=== PATIENT | female | born 1960 | race Caucasian/White ===

== ENCOUNTER → 2019-09-04 13:52 | Outpatient (BNVA) | payer SELFPAY | PROVIDERS: Family Provider Family Medicine; PCP Family Medicine; Visit Provider Family Medicine | DX: N99.89 Other postprocedural complications and disorders of genitourinary system (principal); N39.0 Urinary tract infection, site not specified; H35.3131 Nonexudative age-related macular degeneration, bilateral, early dry stage | CPT/HCPCS: 81003 ==

== ENCOUNTER → 2020-03-27 14:20 | Outpatient (BNVA) | payer SELFPAY | PROVIDERS: Family Provider Family Medicine; PCP Family Medicine; Visit Provider Emergency Medicine | DX: N39.0 Urinary tract infection, site not specified (principal) | CPT/HCPCS: 81000 ==

== ENCOUNTER → 2020-06-23 10:53 | Outpatient (BNVA) | payer SELFPAY | PROVIDERS: Family Provider Family Medicine; PCP Family Medicine; Visit Provider Nurse Practitioner Family | DX: N39.0 Urinary tract infection, site not specified (principal) | CPT/HCPCS: 81000; 87086 ==

== ENCOUNTER → 2021-06-25 10:32 | Outpatient (BNVA) | payer SELFPAY | PROVIDERS: Family Provider Family Medicine; PCP Family Medicine; Visit Provider Family Medicine | DX: M17.12 Unilateral primary osteoarthritis, left knee (principal) | CPT/HCPCS: 73562 ==

== ENCOUNTER → 2023-05-15 09:40 | Outpatient (BNVA) | payer SELFPAY | PROVIDERS: Family Provider Family Medicine; PCP Family Medicine; Visit Provider Family Medicine | DX: M25.562 Pain in left knee (principal); M54.16 Radiculopathy, lumbar region; M79.652 Pain in left thigh | CPT/HCPCS: 72100; 73552; 73562 ==

== ENCOUNTER → 2023-08-02 13:12 | Outpatient (BNVA) | payer SELFPAY | PROVIDERS: Family Provider Family Medicine; PCP Family Medicine; Referring Provider Family Medicine; Visit Provider Specialist | DX: M25.552 Pain in left hip (principal); M16.12 Unilateral primary osteoarthritis, left hip | CPT/HCPCS: 73502 ==

== ENCOUNTER → 2024-03-25 14:00 | Outpatient (BNVA) | payer MEDICARE, SELFPAY | PROVIDERS: Family Provider Family Medicine; PCP Family Medicine; Visit Provider Nurse Practitioner | DX: Z01.818 Encounter for other preprocedural examination (principal); M16.12 Unilateral primary osteoarthritis, left hip | CPT/HCPCS: 36415; 73502; 80053; 81003; 81015; 85025; 87077; 87086; 87186 ==

== ENCOUNTER → 2024-04-08 10:25 | Outpatient (BNVA) | payer MEDICARE, SELFPAY | PROVIDERS: Family Provider Family Medicine; PCP Family Medicine; Visit Provider Family Medicine | DX: N39.0 Urinary tract infection, site not specified (principal) | CPT/HCPCS: 81000 ==

== ENCOUNTER 2024-04-09 16:07 | Observation (INO) | payer MEDICARE, SELFPAY ==
[2024-04-09] VITALS (12 sets, daily range): BP systolic 101–128; BP diastolic 65–87; PULSE 58–83; RESP 12–18; TEMP 36.3–37.2; O2SAT 98–100; BMI 23.9
--- NOTE | 2024-04-09 11:42 | ECG_ITS ---
[facility] Test Date: 2024-04-09 Pat Name: Angelica Vera Department: Room: Gender: Female Bet Taker: : 1960 Requested By: Bhavna Doyle Order Number: [id number] Esperanza MD: Andrea Leblanc M.D. Measurements Intervals [place] Rate: 85 P: 74 MO: 146 QRS: 56 QRSD: 94 T: 48 QT: 372 QTc: 443 Interpretive Statements SINUS RHYTHM INDETERMINATE AXIS INCOMPLETE RIGHT BUNDLE BRANCH BLOCK [90+ ms QRS DURATION, TERMINAL R IN V1/V2, 40+ ms S IN I/aVL/V4/V5/V6] No previous ECG available for comparison Electronically Signed On 04-09-2024 16:56:24 CDT by Andrea Leblanc M.D. [email or web address]
--- NOTE | 2024-04-09 12:10 | ANES.PREANE2 ---
Pre-Anesthetic Assessment Height/Weight: Height 1.65 m Weight 65.317 kg Temp Pulse Resp BP Pulse Ox O2 Del Method 97.4 F L 83 16 126/87 99 Room Air 04/09/24 11:53 04/09/24 11:53 04/09/24 11:53 04/09/24 11:53 04/09/24 11:53 04/09/24 11:53 Operation Date: 04/09/24 13:20 Proposed Procedures p Total Hip Arthroplasty(Left) - Luciana Schafer MD Familial anesthetic complications: SEvere PONV Was Beta Nafisa taken within 24 hours: N/A Was Clonidine taken within 24 hours: N/A Last intake: Intake Last Liquid Date 04/08/24 Last Liquid Time 18:30 Last Solid Date 04/08/24 Last Solid Time 18:00 Social No alcohol and No tobacco Exam alert, oriented x 3, clear to auscultation bilaterally and regular rate & rhythm Airway Mallampati: Class I Dentition: full Anesthetic Plan ASA status: 1 Anesthesia: Regional (specify below) Other: spinal Risk of > 500 ml blood loss (7ml/kg in children): Yes, adequate IV access and fluids planned Medications/Allergies Home Medications Medication Instructions Recorded Confirmed Last Taken Type fluoxetine 20 mg capsule 20 mg PO DAILY 90 days #90 caps 05/15/23 04/08/24 04/08/24 Rx rizatriptan 10 mg disintegrating 10 mg PO Q2H PRN migraine headache 05/15/23 04/08/24 Unknown 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) #10 tabs meloxicam 15 mg tablet 15 mg PO DAILY PRN hip pain 90 08/28/23 04/08/24 04/08/24 Rx days #90 tabs Allergies Allergy/AdvReac Type Severity Reaction Status Date / Time Penicillins Allergy Mild ALGY-Bliste Verified 04/08/24 09:57 r [facility] Anesthesia Medical History 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
[2024-04-09] MEDS: scopolamine 1.5 Patch 1 PATCH TRANSDERMA (12:11)
[2024-04-09] MEDS: CELEcoxib 200 mg Capsule 400 MG PO (12:13)
[2024-04-09] MEDS: gabapentin 300 mg Capsule PO (12:13)
[2024-04-09] MEDS: sodium chloride 0.9% 1,000 ML 30 ML IV (12:32)
[2024-04-09] MEDS: acetaminophen 1,000 MG/100 ML PIGGYBACK 400 MG IV ×2 (12:36→21:08)
--- NOTE | 2024-04-09 13:14 | P.HPUD_ITS ---
Surgery/Procedure H&P Update DATE OF PROCEDURE: April 09, 2024 DATE H&P PERFORMED: 03/25/21 H&P UPDATE INFORMATION: I have reviewed H&P completed within last 30 days, I have examined patient prior to procedure, No changes to prior documentation and H&P is in [facility] on date indicated PLANNED PROCEDURE: Operation Date: 04/09/24 13:20 Proposed Procedures p Total Hip Arthroplasty(Left) - Luciana Schafer MD Related Problem List Diagnoses (1) Primary osteoarthritis of left hip:
[2024-04-09] MEDS: ceFAZolin 2,000 mg SDV 2000 MG IVP ×2 (13:17→21:05)
[2024-04-09] MEDS: tranexamic acid 1,000 mg/10mL SDV 1000 MG IV (13:40)
[2024-04-09] MEDS: vancomycin 1,000 MG SDV 2000 MG XX (14:10)
--- NOTE | 2024-04-09 15:55 | P.OP_ITS ---
Operative Report Date of procedure: April 09, 2024 Pre-op diagnosis: Primary osteoarthritis left hip Post-op diagnosis: Primary osteoarthritis left hip Post-op findings: Severe degenerative osteoarthritis of the left hip Procedure done: Left total hip arthroplasty Implants: The [place] hip system utilizing the Insignia hip stem high offset size 6, with a size 52 mm by E alpha code Trident TriTanium solid back acetabular shell, a 42 mm E MDM cementless liner, and a Biolox delta ceramic V40 femoral head size 28 mm outer diameter with +0 mm neck length Specimens removed/disposition: Femoral head, disposed of Pathology: Synovium Surgeon: Luciana Schafer MD Multi Craft Maintenance Technician: Divina Hernandez Multi Craft Maintenance Technician: Whose services were required for positioning, retraction, closure, and overall completion of the surgical procedure Anesthesia: Spinal (With MAC, ASA 1) Estimated blood loss (mL): 50 IV fluids (mL): 1,000 Urine output (mL): 300 Complications: None Findings: Severe degenerative osteoarthritis of the left hip with complete denudement of cartilage. The hip was stable to flexion of 90 degrees with 60 degrees of internal rotation and 30 degrees of adduction, it was also stable to toe hang and external rotation. Leg lengths appeared equal. Condition: stable Disposition: PACU (Then admit under observation status to floor for postoperative rehabilitation and pain management) Brief History: This 64-year-old woman presents for left total hip arthroplasty. The patient had hip pain over the past year, but it was worsening in severity. She was limping, and she complained of significant difficulties with her activities of daily living. Extended discussion was had in the office with the patient to discuss left total hip arthroplasty. She wished to proceed and her was in agreement with the plan. Therefore, the patient was scheduled for the above procedure. Procedure: Patient was brought to the operating theater. She was transferred to the operating room table and subsequently administered a spinal anesthetic with MAC, ASA 1. Following administration of adequate anesthesia, the patient was placed in full lateral position and held in position with a pegboard. The patient's left lower extremity was then prepped and draped in usual fashion utilizing DuraPrep. It was draped free. Following prepping and draping a surgical pause was performed. At the time of surgical pause, we identified the site and side of surgery. We also identified the patient and preoperative surgical markings. Confirmation was made of equipment availability. Additionally, the patient's preoperative IV antibiotic, Ancef 2 g, was confirmed as being given in a timely fashion and being the appropriate antibiotic. Following the surgical pause, an incision was made centering over the patient's greater trochanter continuing proximally and distally as necessary to allow access to the hip joint. Dissection continued through skin and soft tissues using a scalpel, and hemostasis was obtained using electrocautery. The tensor fascia cristofer was identified and incised longitudinally. Sciatic nerve was identified and protected throughout the surgical procedure. A Charnley U retractor was placed after the tensor fascia cristofer had been incised longitudinally, and the sciatic nerve had been identified. The hip was inte rnally rotated, and the piriformis muscle was identified and tagged. Piriformis muscle along with the remaining short external rotators were then incised from the posterior aspect of the hip joint. These were retracted posteriorly. The capsule was entered in a T-type fashion with the edges being tagged, and subsequently the hip was dislocated. Following hip dislocation, a femoral neck osteotomy was accomplished in the appropriate position. We then evaluated the acetabulum. The femur was retracted anteriorly. Soft tissues were retracted and the labrum was removed. We then began reaming. Once the femoral head was removed, there was no evidence of infection, but there was significant loss of cartilage over the head and over the acetabulum with femoral head collapse. We reamed the gonzalez tabulum to a size 51 to allow for a size 52 mm TriTanium solid back acetabular shell component. The acetabulum was impacted into position. The shell was impacted into position. Subsequently, the MDM liner, cementless was impacted into place. This was a size 42 mm with the alpha code to match the size 52 TriTanium shell. Once this was impacted into position, edges were checked to ensure there was no soft tissue impingement. The area was irrigated and attention was directed to the proximal femur. The proximal femur was lifted out of the wound. A canal finder was passed after the box chisel. The reamer was used to lateralize. We then began broaching. We broached sequentially and had excellent fit and fill with the size 6 high offset Insignia hip stem. A trial reduction was accomplished with a +0 mm femoral head inside a trial MDM insert size 28 mm inner diameter by 42E. Leg lengths were evaluated and felt to be restored. The patient was stable to external rotation, toe hang, and at 90 degrees of flexion with 60 degrees of internal rotation and 30 degrees of adduction. The stability was felt to be excellent. Therefore, trial components were removed after the hip was dislocated. The size 6 high offset Insignia hip stem, Al[place], was impacted into position. Once this was in place, the MDM liner size 42 mm by E alpha code was assembled with the 28 mm +0 mm Biolox femoral head. This was then placed onto the hip stem and impacted into position. Hip was reduced. Again the hip was placed through range of motion, and the above stabilities were obtained. The wound was copiously irrigated with 20 mL of Betadine and 500 mL of normal saline mixed together. Subsequently, we suctioned this out and irrigated the wound copiously with lactated Ringer's. Being satisfied with the prosthesis, attention was directed to closure. Closure was accomplished with 0 Vicryl in the capsular tissues. Piriformis was reattached with 0 Vicryl as well. Tensor fascia cristofer was closed with 0 Vicryl in an interrupted fashion. The subcutaneous tissues were closed with a combination of 0 Vicryl and 2-0 STRATAFIX in a running fashion. Vancomycin powder and a Gelfoam thrombin mixture was placed into the wound as well. The skin was closed with a running 3-0 STRATAFIX followed by Dermabond Joycelyn and Flakito. The patient was placed in an abduction pillow. She was returned the Recovery Room in a satisfactory condition and will be discharged to the floor for postoperative rehabilitation and pain management. There were no complications. Related Problem List Diagnoses (1) Primary osteoarthritis of left hip:
--- NOTE | 2024-04-09 15:56 | XRR_ITS ---
PROCEDURE INFORMATION: Exam: XR Pelvis Exam date and time: 04/09/2024 4:02 PM Age: 64 years old Clinical indication: Device placement; Other: Post lt thr; Prior surgery; Surgery date: Post-operative (0-2 days); Surgery type: Post op lt hip; Additional info: S/P leonard, low ap pelvis TECHNIQUE: Imaging protocol: Radiologic exam of the pelvis. Views: 1 or 2 view. COMPARISON: CR XR hip LT 2-3V wo/w pel* [id number] 03/25/2024 2:09 PM FINDINGS: Bones/joints: A left hip prosthesis is well seated and well aligned. Intra-articular air is noted. Soft tissues: Unremarkable. XR/XR pelvis 1-2V* [id number] IMPRESSION: Intact postoperative hip prosthesis
--- NOTE | 2024-04-09 16:15 | SUR.PHASEI ---
1600 SCD pump to SCDs and pump on and working.
--- NOTE | 2024-04-09 16:25 | ANE.PACU2 ---
Inpatient post-anesthesia follow up: Airway intact: Yes Vital signs: Temperature 98.0 F Pulse Rate 62 Respiratory Rate 16 Blood Pressure 95/64 Pulse Oximetry 97 Oxygen Delivery Me thod Room Air Oxygen Flow Rate Fraction of Inspir ed Oxygen Hydration adequate: Yes Nausea and vomiting: No Pain level: 1 Mental status: Baseline
[2024-04-09] MEDS: oxyCODONE 5 mg IR Tab/Cap PO (21:06)
[2024-04-09] MEDS: CELEcoxib 200 mg Capsule PO (21:06)
[2024-04-09] MEDS: tranexamic acid 1,000 MG/100 ML PREMIX 600 MG IV (21:08)
[2024-04-09] MEDS: chlorhexidine gluconate 0.12% Btl 473 mL 30 ML MUCOUS MEM (21:08)
[2024-04-09] MEDS: ondansetron 2 mg/ML SDV 2 mL 4 MG IVP (21:48)
[2024-04-10] VITALS: BP 113/65; PULSE 68; RESP 15; TEMP 36.9; O2SAT 97
--- NOTE | 2024-04-10 01:05 | PC.NURSE ---
pt requested that we don't give her oxycodone for pain management anymore due to the drowsiness and nausea she experienced. pt was given zofran shortly after oxy admin and pt stated she might change her mind if she really hurts but would like to avoid it.
[2024-04-10 04:00] VITALS: BP 101/59; PULSE 95; RESP 19; TEMP 36.6; O2SAT 96
[2024-04-10] MEDS: acetaminophen 1,000 MG/100 ML PIGGYBACK 400 MG IV ×2 (04:43→12:44)
[2024-04-10] MEDS: ceFAZolin 2,000 mg SDV 2000 MG IVP ×2 (04:43→12:26)
[2024-04-10 05:51] LABS: Basophils % 0.3 %; Eosinophils % 0.1 %; Hematocrit 35.3 % (36-47); Lymphocytes # 1.3 10^3/uL (0.8-4.8); Lymphocytes % 12.5 %; Mean Corpuscular HGB Conc 32.6 g/dL (30-55); Mean Corpuscular Hemoglobin 30.8 pg (27-33); Mean Corpuscular Volume 94.6 fl (85-98); Mean Platelet Volume 9.3 fL (7.4-10.4); Monocytes # 0.8 10^3/uL (0.2-0.9); Neutrophils # 8.19 10^3/uL (1.8-7.7); Neutrophils % 78.8 %; Nucleated Red Blood Cells % 0 %; Platelet Count 237 10^3/cmm (157-399); Red Blood Count 3.73 10^6/uL (3.85-5.65); Red Cell Distribution Width 13.7 % (12.1-15.1); White Blood Count 10.39 10^3/uL (3.29-11.43)
[2024-04-10 06:19] LABS: Anion Gap 14.9 (5-19); Blood Urea Nitrogen 12 mg/dL (8-23); Calcium 8.6 mg/dL (8.5-10.5); Carbon Dioxide 20 mmol/L (22-29); Chloride 103 mmol/L (98-107); Creatinine Clr Calc Pharmacy 68.0934; Glomerular Filtration Rate 100.3 mL/min (90-130); Glucose 100 mg/dL (65-115); Osmolality Calculated 278 mOsm/kg (285-295); Potassium 3.9 mmol/L (3.5-5.1); Sodium 134 mmol/L (136-145)
[2024-04-10 08:15] VITALS: BP 92/54; PULSE 66; RESP 16; O2SAT 94
--- NOTE | 2024-04-10 08:31 | PC.NURSE ---
This nurse was at the nurses station when over heard PT Derrick biggs for a nurse. This nurse ran to pt room and PT stated the pt was very near a syncopal episode. The PT assisted pt back to room by chair while a vital cart was obtained. As the pt was standing with him to pivot back to the bed from a chair, the pt visibly became limp in her limbs and her head fell back. Pt laid in bed and legs elevated. BP at this time was 92/54. Pt placed in trendelenburg.
[2024-04-10 08:40] VITALS: BP 95/64; PULSE 62; RESP 16; TEMP 36.7; O2SAT 97
--- NOTE | 2024-04-10 11:26 | PC.NURSE ---
When this nurse went to bedside to give AM medications, the pt refused stating she has them at home and if she is being discharged she would rather not buy them here. All meds returned to [facility]
[2024-04-10 12:00] VITALS: BP 107/68; PULSE 67; RESP 16; TEMP 36.8; O2SAT 98
[2024-04-10] MEDS: ondansetron 2 mg/ML SDV 2 mL 4 MG IVP (12:42)
--- NOTE | 2024-04-10 13:39 | P.DS_ITS ---
Discharge Providers Date of Admission: 04/09/24 16:07 Date of Discharge: April 10, 2024 Attending Provider at Admission: Luciana Schafer MD Attending Provider at Discharge: Luciana Schafer MD Primary Care Provider: Leela Napier MD Diagnoses at Discharge Discharge Diagnosis (1) Primary osteoarthritis of left hip: Status: Acute (2) Status post total hip replacement, left: Status: Acute Permanent problem details: Date of procedure: April 09, 2024 Diagnosis: Primary osteoarthritis left hip Procedure done: Left total hip arthroplasty Implants: The [place] hip system utilizing the Insignia hip stem high offset size 6, with a size 52 mm by E alpha code Trident TriTanium solid back acetabular shell, a 42 mm E MDM cementless liner, and a Biolox delta ceramic V40 femoral head size 28 mm outer diameter with +0 mm neck length Reason for Visit Reason for Visit: M16.12 Brief History: This 64-year-old woman presents for left total hip arthroplasty. The patient h ad hip pain over the past year, but it was worsening in severity. She was limping, and she complained of significant difficulties with her activities of daily living. Extended discussion was had in the office with the patient to discuss left total hip arthroplasty. She wished to proceed and her was in agreement with the plan. Therefore, the patient was scheduled for the above procedure. Hospital Course Hospital Course This 64-year-old woman was admitted under observation status to the floor following same-day surgery for left total hip arthroplasty. The procedure was well-tolerated. The patient did well postoperatively. Her leg was without significant swelling. There was little to no ecchymosis. She was comfortable ambulating. Questions were answered prior to her discharge. She was neurologically intact, and there was no evidence of DVT. Physical Exam Const: COMMON NORMALS: no acute distress, average body habitus, patient oriented x3 and alert GENERAL APPEARANCE: cooperative and comfortable ORIENTATION/CONSCIOUSNESS: Yes awake HENMT: COMMON NORMALS: normocephalic and atraumatic HEAD & SCALP: normocephalic and atraumatic Eye: GENERAL EYE: appearance normal, both eyes and all related structures Chest: COMMONS NORMALS: normal inspection of the chest Resp: COMMON NORMALS: normal respiratory effort EFFORT & INSPECTION: Yes able to speak in complete sentences and Yes symmetric chest movement Extremity: LEFT LOWER EXTREMITY: Yes hip joint (Little to no ecchymosis) Left hip: Yes inspection (Little to no swelling), Yes palpation ( nontender), Yes ROM (Not evaluated) and Yes neurovascular exam (No evidence of DVT) Neuro: COMMON NORMALS: patient oriented x3 SENSORIUM/ORIENTATION: Yes alert Psych: COMMON NORMALS: mental status grossly normal APPEARANCE: Yes grossly normal ATTITUDE: Yes calm and Yes engaged ATTENTION/CONCENTRATION: Yes attention grossly intact Skin: COMMON NORMALS: no rashes or lesions noted GENERAL SKIN EXAM: no rashes or lesions noted Urinary Catheter Management: Mullins: Cath Placed During This Visit: yes, but has since been removed by the nurse Reason for Continuing Indwelling Catheter: Decision to DC Catheter Urinary Catheter Date of Insertion: 04/09/24 Urinary Catheter Time of Insertion: 13:40 Date Urinary Catheter Removed: 04/10/24 Time Urinary Catheter Discontinued: 04:57 Discharge Data Studies Completed and Pending Completed Studies During Hospitalization Category Date Time Status XR pelvis 1-2V* [id number] Routine Exams 04/09/24 15:56 Completed Pending at discharge Category Date Time Status Complete Blood Count w/Auto AM LABS Lab 04/11/24 04:00 Ordered Complete Blood Count w/Auto AM LABS Lab 04/12/24 04:00 Ordered Pathology: Surgical [PTH] Routine Pth 04/09/24 15:59 Received Radiology Impressions Pelvis X-Ray 04/09/24 15:56 IMPRESSION: Intact postoperative hip prosthesis Laboratory Results WBC 10.39 10^3/uL (3.29-11.43) 04/10/24 05:19 RBC 3.73 10^6/uL (3.85-5.65) L 04/10/24 05:19 Hgb 11.50 g/dL (11.27-16.99) 04/10/24 05:19 Hct 35.3 % (36-47) L 04/10/24 05:19 MCV 94.6 fl (85-98) 04/10/24 05:19 MCH 30.8 pg (27-33) 04/10/24 05:19 MCHC 32.6 g/dL (30-55) 04/10/24 05:19 RDW 13.7 % (12.1-15.1) 04/10/24 05:19 Plt Count 237 10^3/cmm (157-399) 04/10/24 05:19 MPV 9.3 fL (7.4-10.4) 04/10/24 05:19 Neut % (Auto) 78.8 % 04/10/24 05:19 Lymph % (Auto) 12.5 % 04/10/24 05:19 Lyman % (Auto) 8.0 % 04/10/24 05:19 Eos % (Auto) 0.1 % 04/10/24 05:19 Baso % (Auto) 0.3 % 04/10/24 05:19 Neut # (Auto) 8.19 10^3/uL (1.8-7.7) H 04/10/24 05:19 Lymph # (Auto) 1.3 10^3/uL (0.8-4.8) 04/10/24 05:19 Lyman # (Auto) 0.8 10^3/uL (0.2-0.9) 04/10/24 05:19 Eos # (Auto) 0.0 10^3/uL (0.0-0.8) 04/10/24 05:19 Baso # (Auto) 0.0 10^3/uL (0.0-0.1) 04/10/24 05:19 Nucleated RBC % (auto) 0 % 04/10/24 05:19 Nucleated RBCs # 0.0 /100WBC 04/10/24 05:19 Sodium 134 mmol/L (136-145) L 04/10/24 05:19 Potassium 3.9 mmol/L (3.5-5.1) 04/10/24 05:19 Chloride 103 mmol/L (98-107) 04/10/24 05:19 Carbon Dioxide 20 mmol/L (22-29) L 04/10/24 05:19 Anion Gap 14.9 (5-19) 04/10/24 05:19 BUN 12 mg/dL (8-23) 04/10/24 05:19 Creatinine 0.6 mg/dL (0.5-0.9) 04/10/24 05:19 GFR Calculation 100.3 mL/min (90-130) 04/10/24 05:19 Glucose 100 mg/dL (65-115) 04/10/24 05:19 Calculated Osmolality 278 mOsm/kg (285-295) L 04/10/24 05:19 Calcium 8.6 mg/dL (8.5-10.5) 04/10/24 05:19 Vitals Last Vital Signs Temp 98.3 F 04/10/24 12:00 Pulse 67 04/10/24 12:00 Resp 16 04/10/24 12:00 BP 107/68 04/10/24 12:00 Pulse Ox 98 04/10/24 12:00 O2 Del Method Room Air 04/10/24 08:40 Discharge Plan Discharge Patient Disposition: Home Health Service Condition: Stable Prescriptions: New celecoxib 200 mg Capsule 200 mg PO 1XD 30 Days Qty: 30 0RF acetaminophen 500 mg Tablet 1,000 mg PO Q8H 15 Days Qty: 90 0RF aspirin 325 mg Tablet,Delayed Release (Dr/Ec) 325 mg PO DAILY 30 Days Qty: 30 0RF oxycodone 5 mg Tablet 5 - 10 mg PO Q4H PRN (Reason: Moderate To Severe Pain) 7 Days Qty: 40 0RF Continued meloxicam 15 mg tablet 15 mg PO DAILY PRN (Reason: hip pain) 90 Days Qty: 90 3RF Rx Instructions: WITH FOOD fluoxetine 20 mg capsule 20 mg PO DAILY 90 Days Qty: 90 3RF Rx Instructions: 340B rizatriptan [Maxalt-CHARGING CAR OPERATOR] 10 mg tablet,disintegrating 10 mg PO Q2H MDD 2 tabs PRN (Reason: migraine headache) Qty: 10 11RF Rx Instructions: may repeat once 2 hours after first dose Discharge Orders: Discharge Order (Routine); Ordered 04/10/24 Ordered By: Luciana Schafer Other Ambulatory Orders: DME: Walker (Order) Location: None Selected Ordered By: Luciana Schafer Referrals: Luciana Schafer MD [Physician] - 04/22/24 1:00 pm Leela Napier MD [Primary Care Provider] - 04/16/24 10:45 am () Discharge Diet: Advance as tolerated and Usual diet Discharge Activity: Increase activity as tolerated, Limit activity as instructed, Use walker/crutches as instructed and As per PT/OT instructions Patient Instructions: Aspirin (By mouth), Oxycodone, Rapid Release (By mouth), Celecoxib (By mouth), Acute Wound Care (DC), Total Hip Replacement (GEN), Joint Replacement Stoplight, Opioid Safety, Post Anesthesia Care Activity Restrictions/Additional Instructions: Ice to left hip. You may weight-bear as tolerated. Posterior hip precautions as instructed. You may shower, but do not submerge your hip in water. Keep clear dressing in place until it comes up on its own. If it lifts and begins to leak into the dressing area, please remove it. Discharge Attestations Time Spent in Discharge Care*: greater than 30 min Specific Discharge Activities: educating patient, educating and/or supporting family/caregiver, documenting/other paperwork and evaluating patient/reviewing data Quality Metrics Clinical Quality Measures [ No reported AMI, CVA or VTE this stay] Coding Level of Care Code Acute Code for Chg Fwd Diagnoses Primary osteoarthritis of left hip M16.12 Status post total hip replacement, left Z96.642
[2024-04-10 15:29] VITALS: BP 107/68; PULSE 67; RESP 16; TEMP 36.8; O2SAT 98
== END 2024-04-10 15:15 | disposition home health service (06) ==
LOC: MEDSURG 16:08
PROVIDERS: Nurse Practitioner; Admitting Provider Specialist; Family Provider Family Medicine; PCP Family Medicine; Visit Provider Specialist
PROC: (CPT 27130; principal; 2024-04-09 13:20)
DX: M16.12 Unilateral primary osteoarthritis, left hip (principal); Z79.899 Other long term (current) drug therapy; Z88.0 Allergy status to penicillin
CPT/HCPCS: 27130; 36415; 51702; 72170; 80048; 85025; 88305; 93005; 97110; 97116; 97162; 97167; 97530; C1713; C1776; G0378; J0131; J0690; J1100; J2250; J2405; J2704; J3370; J7030

== ENCOUNTER → 2024-04-22 13:16 | Outpatient (BNVA) | payer MEDICARE, SELFPAY | PROVIDERS: Family Provider Family Medicine; PCP Family Medicine; Visit Provider Specialist | DX: Z96.642 Presence of left artificial hip joint (principal) | CPT/HCPCS: 73502; 99024 ==

== ENCOUNTER → 2024-05-22 08:23 | Outpatient (BNVA) | payer MEDICARE, SELFPAY | PROVIDERS: Family Provider Family Medicine; PCP Family Medicine; Visit Provider Specialist | DX: Z96.642 Presence of left artificial hip joint (principal) | CPT/HCPCS: 73502; 99024 ==

== ENCOUNTER → 2024-08-26 12:47 | Outpatient (BNVA) | payer MEDICARE, SELFPAY | PROVIDERS: Family Provider Family Medicine; PCP Family Medicine; Visit Provider Specialist | DX: Z96.642 Presence of left artificial hip joint (principal); M16.12 Unilateral primary osteoarthritis, left hip | CPT/HCPCS: 73502; 99213 ==

== ENCOUNTER → 2025-03-27 08:25 | Outpatient (BNVA) | payer MEDICARE, SELFPAY | PROVIDERS: Family Provider Family Medicine; PCP Family Medicine; Visit Provider Family Medicine | DX: Z13.1 Encounter for screening for diabetes mellitus (principal); Z13.220 Encounter for screening for lipoid disorders; Z13.6 Encounter for screening for cardiovascular disorders; M10.9 Gout, unspecified; N39.0 Urinary tract infection, site not specified; R30.0 Dysuria | CPT/HCPCS: 80053; 80061; 81000; 84550; 87086 ==

== ENCOUNTER 2025-04-02 13:21 | Outpatient (CLI) | payer MEDICARE, SELFPAY ==
--- NOTE | 2025-04-02 14:00 | MM_ITS ---
WS: [id number] BILATERAL 3D TOMOSYNTHESIS DIGITAL SCREENING MAMMOGRAPHY WITH CAD CLINICAL INFORMATION: Z12.39 - Encounter for other screening for malignant neop... HISTORY: Screening mammogram. No current complaints. COMPARISON: New baseline TECHNIQUE: Bilateral CC and MLO views. FINDINGS: The breasts are composed of heterogeneous fibroglandular density tissue, which can limit the detection of small underlying mass lesions. No suspicious mass, asymmetry, calcifications, or architectural distortion. No evidence of malignancy. MM/MM [facility] tomosynthesis [id number] IMPRESSION: DENSITY: The breasts are heterogeneously dense, which may obscure small masses. BI-RADS: 1 - Negative FOLLOW UP: 1 Year Follow-up Recommend return to annual screening mammography.
--- NOTE | 2025-04-02 14:30 | XR_ITS ---
WS: [id number] DEXA (DUAL ENERGY X-RAY ABSORPTIOMETRY) Bone mineral density was performed using a [facility] machine. HISTORY: Z78.0 - Asymptomatic menopausal state COMPARISON: None available. Lumbar spine BMD (L1-L4): 0.777 g/cm2 T score: -3.4 Z score: -1.8 Total hip BMD: Right: 0.623. T score: -3.1 Z score: -1.8 Left forearm BMD: 0.519 g/cm2. T score: -4.1 Z score: -2.6 10 year probability of a major osteoporotic fracture is 27.6%. XR/XR DEXA axial skeleton* [id number] IMPRESSION: OSTEOPOROSIS based upon the WHO classification for females.
== END 2025-04-02 13:22 | disposition home or self-care (01) ==
LOC: RAD 13:23
PROVIDERS: Family Provider Family Medicine; PCP Family Medicine; Visit Provider Family Medicine
DX: Z12.31 Encounter for screening mammogram for malignant neoplasm of breast (principal); Z13.820 Encounter for screening for osteoporosis; Z78.0 Asymptomatic menopausal state; R92.323 Mammographic fibroglandular density, bilateral breasts; R92.333 Mammographic heterogeneous density, bilateral breasts; M81.0 Age-related osteoporosis without current pathological fracture
CPT/HCPCS: 77063; 77067; 77080

== ENCOUNTER → 2025-04-09 12:49 | Outpatient (BNVA) | payer MEDICARE, SELFPAY | PROVIDERS: Family Provider Family Medicine; PCP Family Medicine; Visit Provider Specialist | DX: Z47.89 Encounter for other orthopedic aftercare (principal); Z96.642 Presence of left artificial hip joint | CPT/HCPCS: 73502; 99213 ==

== ENCOUNTER → 2025-04-17 07:38 | Outpatient (BNVA) | payer MEDICARE, SELFPAY | PROVIDERS: Family Provider Family Medicine; PCP Family Medicine; Visit Provider Student in an Organized Health Care Education/Training Program | DX: Z12.11 Encounter for screening for malignant neoplasm of colon (principal) | CPT/HCPCS: 99024; 99204 ==

== ENCOUNTER 2025-04-24 09:58 | Day surgery (SDC) | payer MEDICARE, SELFPAY ==
[2025-04-24 10:10] VITALS: BP 98/75; PULSE 110; RESP 18; TEMP 36.4; O2SAT 96; BMI 23.6
--- NOTE | 2025-04-24 10:30 | ANES.PREANE2 ---
Pre-Anesthetic Assessment Height/Weight: Height 1.65 m Weight 64.41 kg Temp Pulse Resp BP Pulse Ox O2 Del Method 97.5 F L 110 H 18 98/75 96 Room Air 04/24/25 10:10 04/24/25 10:10 04/24/25 10:10 04/24/25 10:10 04/24/25 10:10 04/24/25 10:10 Operation Date: 04/24/25 11:30 Proposed Procedures p Colonoscopy [id number] R19.5(Not Applicable) - Holden Hearn MD Familial anesthetic complications: PONV Was Beta Nafisa taken within 24 hours: N/A Was Clonidine taken within 24 hours: N/A Last intake: Intake Last Liquid Date 04/23/25 Last Liquid Time 22:00 Last Solid Date 04/22/25 Last Solid Time 16:00 Social No alcohol and No tobacco Exam alert and oriented x 3 Airway Submandibular: within normal limits Cervical ROM: within normal limits Mallampati: Class IV (small mouth opening) Dentition: full History/ROS No significant complaints Pulmonary None reported CV/HEM None reported None reported Hepatic None reported GI None reported Metabolic None reported Musc/skel None reported Neuropsych Depression Anesthetic Plan ASA status: 2 Anesthesia: Anesthesia Evaluation and MAC Medications/Allergies Home Medications ?Medication ?Instructions ?Recorded ?Confirmed ?Last Taken ?Type fluoxetine 20 mg capsule 20 mg PO DAILY 90 days #90 caps 03/27/25 04/21/25 04/23/25 00:00 Rx rizatriptan 10 mg disintegrating 10 mg PO Q2H PRN migraine headache 03/27/25 04/21/25 04/23/25 00:00 Rx tablet (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 LEDGER ACCOUNTANT) #10 tabs alendronate 70 mg tablet 70 mg PO .WEEKLY 90 days #13 tabs 04/08/25 04/21/25 04/23/25 00:00 Rx Allergies Allergy/AdvReac Type Severity Reaction Status Date / Time Penicillins Allergy Mild ALGY-Bliste Verified 04/24/25 10:09 r Current Medications Generic Name Dose Route Start Last Admin Trade Name Freq PRN Reason Stop Dose Admin Sodium Chloride 1,000 mls @ 15 mls/hr 04/24/25 10:01 04/24/25 10:27 Sodium Chloride 0.9% IV 04/25/25 10:00 15 mls/hr .Q24H PRN Administration COLONOSCOPY FLUIDS PFSH Anesthesia Medical History 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
--- NOTE | 2025-04-24 11:19 | W.PM.OPSUD ---
Surgery/Procedure H&P Update DATE OF PROCEDURE: April 24, 2025 DATE H&P PERFORMED: 04/24/25 H&P UPDATE INFORMATION: I have reviewed H&P completed within last 30 days, I have examined patient prior to procedure, No changes to prior documentation and Risks and benefits of the procedure reviewed PLANNED PROCEDURE: Operation Date: 04/24/25 11:30 Proposed Procedures p Colonoscopy [id number] R19.5(Not Applicable) - Holden Hearn MD
[2025-04-24 11:35] VITALS: BP 94/60; PULSE 74; RESP 16; TEMP 36.7; O2SAT 96
[2025-04-24 11:57] VITALS: BP 96/62; PULSE 69; RESP 16; O2SAT 97
--- NOTE | 2025-04-24 12:02 | ANE.PACU2 ---
Inpatient post-anesthesia follow up: Airway intact: Yes Vital signs: Temperature 98.1 F Pulse Rate 69 Respiratory Rate 16 Blood Pressure 96/62 Pulse Oximetry 97 Oxygen Delivery Me thod Room Air Oxygen Flow Rate Fraction of Inspir ed Oxygen Hydration adequate: Yes Nausea and vomiting: No Pain level: 1 Mental status: Baseline
== END 2025-04-24 12:02 | disposition home or self-care (01) ==
PROVIDERS: Family Provider Family Medicine; PCP Family Medicine; Visit Provider Student in an Organized Health Care Education/Training Program
PROC: 0DJD8ZZ Inspection of Lower Intestinal Tract, Via Natural or Artificial Opening Endoscopic (ICD-10-PCS; CPT 45378; principal; 2025-04-24 11:30)
DX: Z12.11 Encounter for screening for malignant neoplasm of colon (principal); R19.5 Other fecal abnormalities; K55.20 Angiodysplasia of colon without hemorrhage; K57.30 Diverticulosis of large intestine without perforation or abscess without bleeding; K64.4 Residual hemorrhoidal skin tags; F32.A Depression, unspecified
CPT/HCPCS: G0121; J2405; J2704; J7030